=== PATIENT | male | born 1995 | race Native Hawaiian/Other Pacific Islander ===

== ENCOUNTER 2017-08-13 23:12 | Emergency (ER) | payer SELFPAY ==
[~2017-08-13] VITALS: Ht 170.2 cm; Wt 65.0 kg
[2017-08-13 23:38] VITALS: BP 130/72; PULSE 94; RESP 15; TEMP 97.5; O2SAT 100
[2017-08-13] MEDS ORDERED: SODIUM CHLOR 0.9% 1000 ML INJ 1,000 ML IV ONE (23:46)
[2017-08-14] MEDS ORDERED: SODIUM CHLORIDE 0.9% FLUSH 10 ML FLUSH IVF PRN
[2017-08-14 00:14] LABS: AUTOMATED NEUTROPHIL # 7.1 TH/MM3 (1.8-7.7); BASOPHIL % 0.3 % (0.0-2.0); EOSINOPHIL # 0.2 TH/MM3 (0-0.4); EOSINOPHIL % 2.1 % (0.0-4.0); HEMOGLOBIN 13.6 GM/DL (13.0-17.0); LYMPH % 14.1 % (9.0-44.0); LYMPHOCYTE # 1.3 TH/MM3 (1.0-4.8); MEAN CELL VOLUME 90.7 FL (80.0-100.0); MEAN CORPUSCULAR HEMOGLOBIN 30.8 PG (27.0-34.0); MEAN PLATELET VOLUME 8.1 FL (7.0-11.0); MONO % 6.9 % (0.0-8.0); MONOCYTE # 0.6 TH/MM3 (0-0.9); NEUT % 76.6 % (16.0-70.0); PLATELET COUNT 261 TH/MM3 (150-450); RED BLOOD COUNT 4.41 MIL/MM3 (4.50-5.90); WHITE BLOOD COUNT 9.2 TH/MM3 (4.0-11.0)
--- NOTE | 2017-08-14 00:29 | RADRPT ---
EXAM DATE/TIME: 08/14/2017 00:14 [facility] COMPARISON: No previous studies available for comparison. INDICATIONS : Seizure. RADIATION DOSE: 34.94 CTDIvol (mGy) MEDICAL HISTORY : None SURGICAL HISTORY : None. ENCOUNTER: Initial ACUITY: 1 day PAIN SCALE: 0/10 LOCATION: cranial TECHNIQUE: Multiple contiguous axial images were obtained of the head. Using automated exposure control and adj ustment of the mA and/or kV according to patient size, radiation dose was kept as low as reasonably a chievable to obtain optimal diagnostic quality images. DICOM format image data is available electro nically for review and comparison. FINDINGS: CEREBRUM: The ventricles are normal for age. No evidence of midline shift, mass lesion, hemorrhage or acute in farction. No extra-axial fluid collections are seen. POSTERIOR FOSSA: The cerebellum and brainstem are intact. The 4th ventricle is midline. The cerebellopontine angle i s unremarkable. EXTRACRANIAL: The visualized portion of the orbits is intact. SKULL: The calvaria is intact. No evidence of skull fracture. CONCLUSION: Normal examination for a patient of this age. Shawn Guillermo MD on August 14, 2017 at 0:26 Board Certified Radiologist. This report was verified electronically.
[2017-08-14 00:36] LABS: INTERNATIONAL NORMALIZED RATIO 1.1 RATIO; PROTHROMBIN TIME - PATIENT 10.7 SEC (9.8-11.6)
[2017-08-14 00:37] LABS: ALBUMIN 4.6 GM/DL (3.4-5.0); ALT (GPT) 17 U/L (12-78); AST (GOT) 12 U/L (15-37); BICARBONATE 24.8 MEQ/L (21.0-32.0); BLOOD UREA NITROGEN 10 MG/DL (7-18); CALCIUM 8.6 MG/DL (8.5-10.1); CHLORIDE 105 MEQ/L (98-107); CREATININE 1.04 MG/DL (0.60-1.30); GLOMERULAR FILTRATION RATE 89 ML/MIN (>89); GLUCOSE,RANDOM 183 MG/DL (74-106); MAGNESIUM 2.2 MG/DL (1.5-2.5); SODIUM (NA) 138 MEQ/L (136-145)
[2017-08-14 00:41] LABS: ALKALINE PHOSPHATASE 93 U/L (45-117); TOTAL BILIRUBIN ADULT 0.3 MG/DL (0.2-1.0); TOTAL PROTEIN 8.1 GM/DL (6.4-8.2); TROPONIN I LESS THAN 0.02 NG/ML (0.02-0.05)
--- NOTE | 2017-08-14 01:11 | RADRPT ---
EXAM DATE/TIME: 08/14/2017 00:49 [facility] COMPARISON: No previous studies available for comparison. INDICATIONS : Seizure earlier. MEDICAL HISTORY : None. SURGICAL HISTORY : None. ENCOUNTER: Initial ACUITY: 1 day PAIN SCORE: 0/10 LOCATION: Bilateral chest FINDINGS: A single view of the chest demonstrates the lungs to be symmetrically aerated without evidence of mas s, infiltrate or effusion. The cardiomediastinal contours are unremarkable. Osseous structures are intact. CONCLUSION: Normal examination for a patient of this age. Shawn Guillermo MD on August 14, 2017 at 1:08 Board Certified Radiologist. This report was verified electronically.
[2017-08-14 03:29] LABS: BILIRUBIN, URINE NEG (NEG); BLOOD, URINE NEG (NEG); GLUCOSE,URINE NEG (NEG); KETONE, URINE TRACE mg/dL (NEG); NITRITE,URINE NEG (NEG); URINE COLOR YELLOW (YELLW/STRAW)
[2017-08-14 03:30] LABS: AMORPHOUS SEDIMENT, URINE OCC; HYALINE CAST, URINE 1 /lpf (RARE); MUCUS URINE FEW /lpf (OCC); URINE LEUKOCYTE ESTERASE NEG (NEG)
--- NOTE | 2017-08-14 03:59 | PD ---
HPI Chief Complaint: Seizure Time Seen by Provider: 23:46 Travel History International Travel<30 days: No Contact w/Intl Traveler<30days: No Traveled to known affect area: No History of Present Illness HPI 22-year-old male presents to the emergency department by private transportation the care of his friends for possible seizure. According to the friends who translate for the patient as he only speaks Bulgarian and the [employer] A/V translating device is not available but friends speak airbag and Occitan he was sitting in the backseat of a car the friend was driving the car and started hearing a jerking-type noise and looked and saw that he appeared to be having a generalized seizure. The friend pulled off the side of the road and the seizure activity or shaking activity. For thereafter. Friend estimates the duration of the event was possibly a minute and that the post ictal phase was maybe 15 seconds and then he was aware of who he was and where he was but was not aware of what had had Spiriva. Patient has no medical history according to the patient and by his friend who translates. Patient denies any substance use alcohol use recent febrile illness or injury. 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 Patient denies any consumption of any substances to keep him awake or high doses of caffeine. Patient denies any headache or visual disturbance. Patient denies any tongue trauma or tongue soreness. There is no bladder or bowel incontinence. No prior history of similar symptoms. PFSH Past Medical History Narrative Medical negative past medical history negative surgical history no substance use no tobacco use no alcohol use: Nursing notes reviewed Medical History: Denies Significant Hx Past Surgical History Surgical History: No Previous Surgery Social History Alcohol Use: No Tobacco Use: No Substance Use: No Allergies-Medications (Allergen,Severity, Reaction): Coded Allergies: No Known Allergies (Verified Allergy, Unknown, 08/13/17) Reported Meds & Prescriptions Reported Meds & Active Scripts Active No Active Prescriptions or Reported Medications Review of Systems Except as stated in HPI: all other systems reviewed are Neg Physical Exam Narrative GENERAL: Well-developed well-nourished female in no acute distress no respiratory distress GCS 15 SKIN: Warm and dry. HEAD: Atraumatic. Normocephalic. EYES: Pupils equal and round. No scleral icterus. No injection or drainage. ENT: No nasal bleeding or discharge. Mucous membranes pink and moist. No tongue trauma. NECK: Trachea midline. No JVD. Supple no nuchal rigidity no meningismus no tenderness to palpation along the cervical spine CARDIOVASCULAR: Regular rate and rhythm. RESPIRATORY: No accessory muscle use. Clear to auscultation. Breath sounds equal bilaterally. GASTROINTESTINAL: Abdomen soft, non-tender, nondistended. Hepatic and splenic margins not palpable. MUSCULOSKELETAL: Extremities without clubbing, cyanosis, or edema. No obvious deformities. NEUROLOGICAL: Awake and alert. No obvious cranial nerve deficits. Motor grossly within normal limits. Five out of 5 muscle strength in the arms and legs. Normal speech. PSYCHIATRIC: Appropriate mood and affect; insight and judgment normal. Data Data Last Documented VS Vital Signs Date Time Temp Pulse Resp B/P (MAP) Pulse Ox O2 Delivery O2 Flow Rate FiO2 08/13/17 23:49 14 100 Room Air 08/13/17 23:38 97.5 94 130/72 (91) Orders Orders Electrocardiogram (08/13/17 23:46) Complete Blood Count With Diff (08/13/17 23:46) Comprehensive Metabolic Panel (08/13/17 23:46) Magnesium (Mg) (08/13/17 23:46) Troponin I (08/13/17 23:46) Act Partial Throm Time (Ptt) (08/13/17 23:46) Prothrombin Time / Inr (Pt) (08/13/17 23:46) Urinalysis - C+S If Indicated (08/13/17 23:46) Chest, Single Ap (08/13/17 23:46) Ct Brain W/O Iv Contrast(Rout) (08/13/17 23:46) Ecg Monitoring (08/13/17 23:46) Iv Access Insert/Monitor (08/13/17 23:46) Oximetry (08/13/17 23:46) Sodium Chloride 0.9% Flush (Ns Flush) (08/14/17 00:00) Sodium Chlor 0.9% 1000 Ml Inj (Ns 1000 M (08/13/17 23:46) Drug Screen, Random Urine (08/13/17 23:46) Labs Laboratory Tests Test 08/14/17 00:03 08/14/17 03:12 White Blood Count 9.2 TH/MM3 Red Blood Count 4.41 MIL/MM3 Hemoglobin 13.6 GM/DL Hematocrit 40.0 % Mean Corpuscular Volume 90.7 FL Mean Corpuscular Hemoglobin 30.8 PG Mean Corpuscular Hemoglobin Concent 34.0 % Red Cell Distribution Width 13.0 % Platelet Count 261 TH/MM3 Mean Platelet Volume 8.1 FL Neutrophils (%) (Auto) 76.6 % Lymphocytes (%) (Auto) 14.1 % Monocytes (%) (Auto) 6.9 % Eosinophils (%) (Auto) 2.1 % Basophils (%) (Auto) 0.3 % Neutrophils # (Auto) 7.1 TH/MM3 Lymphocytes # (Auto) 1.3 TH/MM3 Monocytes # (Auto) 0.6 TH/MM3 Eosinophils # (Auto) 0.2 TH/MM3 Basophils # (Auto) 0.0 TH/MM3 CBC Comment DIFF FINAL Differential Comment Prothrombin Time 10.7 SEC Prothromb Time International Ratio 1.1 RATIO Activated Partial Thromboplast Time 22.0 SEC Blood Urea Nitrogen 10 MG/DL Creatinine 1.04 MG/DL Random Glucose 183 MG/DL Total Protein 8.1 GM/DL Albumin 4.6 GM/DL Calcium Level 8.6 MG/DL Magnesium Level 2.2 MG/DL Alkaline Phosphatase 93 U/L Aspartate Amino Transf (AST/SGOT) 12 U/L Alanine Aminotransferase (ALT/SGPT) 17 U/L Total Bilirubin 0.3 MG/DL Sodium Level 138 MEQ/L Potassium Level 3.5 MEQ/L Chloride Level 105 MEQ/L Carbon Dioxide Level 24.8 MEQ/L Anion Gap 8 MEQ/L Estimat Glomerular Filtration Rate 89 ML/MIN Troponin I LESS THAN 0.02 NG/ML Urine Color YELLOW Urine Turbidity HAZY Urine pH 7.0 Urine Specific Saxis 1.019 Urine Protein TRACE mg/dL Urine Glucose (UA) NEG mg/dL Urine Ketones TRACE mg/dL Urine Occult Blood NEG Urine Nitrite NEG Urine Bilirubin NEG Urine Urobilinogen 2.0 MG/DL Urine Leukocyte Esterase NEG Urine WBC 3 /hpf Urine Amorphous Sediment OCC Urine Hyaline Casts 1 /lpf Urine Mucus FEW /lpf Microscopic Urinalysis Comment CULT NOT INDICATED Urine Opiates Screen NEG Urine Barbiturates Screen NEG Urine Amphetamines Screen NEG Urine Benzodiazepines Screen NEG Urine Cocaine Screen NEG Urine Cannabinoids Screen POS MDM Medical Decision Making Medical Screen Exam Complete: Yes Emergency Medical Condition: Yes Medical Record Reviewed: Yes Interpretation(s) EKG normal sinus rhythm rate [address] elevation or ectopy noted Last Impressions Head CT 08/13/176 Signed Impressions: Service Date/Time: Monday, August 14, 2017 00:14 - CONCLUSION: Normal examination for a patient of this age. Shawn Guillermo MD Chest X-Ray 08/13/[id number] Signed Impressions: Service Date/Time: Monday, August 14, 2017 00:49 - CONCLUSION: Normal examination for a patient of this age. Shawn Guillermo MD CBC & BMP Diagram 08/14/17 00:03 Total Protein 8.1, Albumin 4.6, Calcium Level 8.6, Magnesium Level 2.2, Alkaline Phosphatase 93, Aspartate Amino Transf (AST/SGOT) 12 L, Alanine Aminotransferase (ALT/SGPT) 17, Total Bilirubin 0.3 Vital Signs Date Time Temp Pulse Resp B/P (MAP) Pulse Ox O2 Delivery O2 Flow Rate FiO2 08/13/17 23:49 14 100 Room Air 08/13/17 23:38 97.5 94 15 130/72 (91) 100 Urine drug screen positive for cannabinoids Differential Diagnosis syncope, seizure, arrhythmia, elect light disturbance, possible ingestion Narrative Course Patient placed on monitor with seizure precautions patient monitored in the emergency department IV access obtained specimens collected and sent for resulting patient given IV fluids Patient sent for CT brain noncontrast reveals no acute process EKG was sinus rhythm with no acute injury pattern or ectopy or arrhythmia noted Lab values found to be in normal range Patient remains monitored remains asymptomatic Urine specimen collected and identified by tox screen to have cannabis on board Patient has adult friends with whom he lives that we'll monitor him no prior history of syncope or seizure form activity is unclear based on description if he had a seizure since his postictal phases like 15 seconds and his possible passing out spell was a minute although with sleep deprivation stress and cannabis may have had an singular seizure. In detailed discussion with patient and friends who have translated as status is not available patient is not to drive a vehicle at all until he is cleared by neurology he is not to swim or climb a ladder or put himself in harm's way reported fall from a height or become injured. Patient friends acknowledge that they understand this and a mandatory referral to neurology has been ordered. Diagnosis Primary Impression: Syncope Qualified Codes: R55 - Syncope and collapse Additional Impressions: Seizure Use of cannabis Referrals: Neurologist 2 days Patient Instructions: General Instructions Additional Instructions: Do not use cannabis Do not drive a car, swim, or climb a ladder until evaluated by neurologist Follow-up with neurologist call office on Wednesday to schedule follow-up appointment; sedimentationist neurologist Dr Galindo Increase fluid hydration Rest Return to the emergency department for any concerns or change in condition Scripts No Active Prescriptions or Reported Meds Disposition: 01 DISCHARGE HOME Condition: Stable Maris Sheffield MD Aug 14, 2017 03:59
[2017-08-14 04:21] VITALS: RESP 14; O2SAT 99
--- NOTE | 2017-08-14 15:25 | EKG ---
Date Performed: 08/14/2017 Time Performed: 00:00:26 PTAGE: 22 years EKG: Sinus rhythm NORMAL ECG NO PREVIOUS TRACING DOCTOR: Zaki Glover Interpretating Date/Time 08/14/2017 15:23:03
== END 2017-08-14 04:38 | disposition home or self-care (01) ==
LOC: NEPC 23:12
DX: R55 Syncope and collapse (principal); R56.9 Unspecified convulsions; F12.90 Cannabis use, unspecified, uncomplicated
CPT/HCPCS: 70450; 71045; 80053; 80307; 81001; 83735; 84484; 85025; 85610; 85730; 93005; 99285; J7030

== ENCOUNTER 2017-10-20 17:41 | Emergency (ER) | payer OTHER ==
[2017-10-20 18:04] VITALS: BP 136/65; PULSE 74; RESP 18; TEMP 98.7; O2SAT 97
--- NOTE | 2017-10-20 22:27 | PD ---
HPI Chief Complaint: Medication Refill Request Time Seen by Provider: 22:12 Travel History International Travel<30 days: No Contact w/Intl Traveler<30days: No Traveled to known affect area: No History of Present Illness HPI 22-year-old male presents to emergency department requesting a refill of medication for his social anxiety. He states that he's been on this medication now for approximately 2 years. He ran out of his medicines approximately 2 weeks ago. He went to the [facility] at [facility] but they would not refill his medication. He presents the ER requesting a refill. He denies any suicidal homicidal ideation. He does admit to having anxiety when out in public. He denies any medical complaints otherwise. He was advised to follow-up with a psychiatrist but has not made an appointment. History Past Medical Histgory Narrative Medical Social anxiety disorder Tetanus Vaccination: < 5 Years Past Surgical History Surgical History: No Previous Surgery Social History Alcohol Use: No Tobacco Use: No Allergies-Medications (Allergen,Severity, Reaction): Coded Allergies: No Known Allergies (Verified Allergy, Unknown, 08/13/17) Reported Meds & Prescriptions Reported Meds & Active Scripts Active No Active Prescriptions or Reported Medications Review of Systems General / Constitutional: No: Fever Eyes: No: Visual changes HENT: No: Headaches Cardiovascular: No: Chest Pain or Discomfort Respiratory: No: Shortness of Breath Gastrointestinal: No: Abdominal Pain Genitourinary: No: Dysuria Musculoskeletal: No: Pain Skin: No Rash Neurologic: No: Weakness Psychiatric: No: Depression Endocrine: No: Polydipsia Hematologic/Lymphatic: No: Easy Bruising Physical Exam Narrative GENERAL: Well-nourished, well-developed patient. SKIN: Warm and dry. HEAD: Normocephalic and atraumatic. EYES: No scleral icterus. No injection or drainage. ENT: No nasal drainage noted. Mucous membranes pink. Airway patent. NECK: Supple, trachea midline. Moves head freely without obvious discomfort. CARDIOVASCULAR: Regular rate and rhythm without murmurs, gallops, or rubs. RESPIRATORY: Breath sounds equal bilaterally. No accessory muscle use. GASTROINTESTINAL: Abdomen soft, non-tender, nondistended. EXTREMITIES: No cyanosis or edema. BACK: Nontender without obvious deformity. No CVA tenderness. NEURO: Patient is alert and oriented. no sensorimotor deficits. Nonfocal. Normal speech. PSYCH: No delusions. No auditory or visual hallucinations. Data Data Last Documented VS Vital Signs Date Time Temp Pulse Resp B/P (MAP) Pulse Ox O2 Delivery O2 Flow Rate FiO2 10/20/17 18:04 98.7 74 18 136/65 (88) 97 MDM Medical Screen Exam Complete: Yes Emergency Medical Condition: No Differential Diagnosis Differential diagnosis: Social anxiety disorder, depression, personality disorder Narrative Course A medical screening exam was performed: At the time of evaluation the presenting medical condition was determined not to be of an emergent nature. The patient was given the option of receiving additional care, but declined. Patient was given options for additional community resources from which to obtain care. The Patient Has Been advised to seek medical attention for their presenting complaint. The patient has been advised to return to the ER at any time if an emergent condition develops. Primary Impression: Encounter for medical screening examination Scripts No Active Prescriptions or Reported Meds Condition: Leo Laura Oct 20, 2017 22:27
== END 2017-10-20 22:30 | disposition left against medical advice (07) ==
LOC: NED 17:41 → NEPK 22:30
DX: F41.8 Other specified anxiety disorders (principal)
CPT/HCPCS: 99281